=== PATIENT | male | born 1975 | race Caucasian/White ===

== ENCOUNTER 2017-04-10 14:54 | Emergency (ER) | payer OTHER ==
[~2017-04-10] VITALS: Ht 165.1 cm; Wt 81.7 kg
[~2017-04-10 14:54] MED LIST: OMEP40CA6 PO
[2017-04-10 14:58] VITALS: Ht 165.1 cm; Wt 81.7 kg
--- NOTE | 2017-04-10 16:01 | ERD ---
ER Documentation Chief Complaint Chief Complaint ALLERGIC REACTION TO MEDICATION HPI 42 y/o male patient with no significant medical, presents to the emergency department c/o sudden onset of generalized, erythematous rash after taking a niacin capsule one hour ago. Denies cough, shortness of breath, no lip swelling , no fever, chills, N/V/D. No history of previous episodes. Treatment attempted : None. Previous evaluation: None. ROS All systems reviewed and are negative except as per history of present illness. Medications Home Meds Active Scripts Diphenhydramine Hcl* (Benadryl*) 50 Mg Cap, 50 MG PO Q6H Y for ITCHING/RASH, # 30 CAP Prov:REBEKAH OLIVARES MD 04/10/17 Reported Medications Omeprazole* (Omeprazole*) 40 Mg Capsule.dr, 40 MG PO DAILY, CAP 09/10/14 Allergies Allergies: Coded Allergies: No Known Allergy (Unverified , 05/01/13) PMhx/Soc History of Surgery: No Anesthesia Reaction: No Hx Neurological Disorder: No Hx Respiratory Disorders: No Hx Cardiac Disorders: No Hx Psychiatric Problems: No Hx Miscellaneous Medical Probl: No Hx Alcohol Use: No Hx Substance Use: No Hx Tobacco Use: No Physical Exam Vitals Vital Signs Date Time Temp Pulse Resp B/P Pulse Ox O2 Delivery O2 Flow Rate FiO2 04/10/17 14:58 97.7 72 19 122/70 100 Physical Exam Patient is in no acute distress, vital signs stable. Alert and fully oriented. EYES: PERRLA, EOMI, Sclera and conjunctiva appear normal. EARS: Canals clear, tympanic membranes WNL THROAT: Normal oropharynx. NECK: Supple, No lymphadenopathy. Full ROM without pain or tenderness. HEART: RRR, no rubs, murmurs, clicks or gallops. LUNGS: Clear to auscultation. ABDOMEN: Soft, non-tender without masses or hepatosplenomegaly. EXTREMITIES: No edema bilaterally. BACK: Full ROM, no deformity, normal back exam NEURO: Cranial nerves grossly intact, no motor or sensory deficit Skin: Generalized erythematous maculopapular rash predominantly in upper arms Results 24 hrs Current Medications Medications (Trade) Dose Ordered Sig/Rajinder Route PRN Reason Start Time Stop Time Status Last Admin Dose Admin Diphenhydramine HCl (Benadryl) 50 mg ONCE ONCE PO 04/10/17 16:30 04/10/17 16:31 04/10/17 16:12 Procedures/MDM 42y/o male patient previously healthy, presents to the ED c/o generalized erythematous rash for 1 hour. Vital signs stable, Physical exam showed generalized maculopapular erythematous rash. Differential diagnosis include but not limited to: Contact dermatitis, urticaria, allergic reaction, no suspicion for infectious rash. Physical examination and clinical presentation consistent most likely with Niacin flushing reaction. During the ED course the patient received treatment with benadryl presenting overall improvement of the symptoms. Clinical impression discussed with patient who agrees with management. The patient is stable to be treated outpatient and will be discharged home with a Rx for benadry The patient was instructed to follow up with the primary care provider in the next 48h. If symptoms persist, worsen or new symptoms develop, then patient should return to the ED immediately. Instructions explained and given to patient in [Honduran] with acknowledgment and demonstrated understanding. Disclaimer: Inadvertent spelling and grammatical errors are likely due to EHR/ dictation software use and do not reflect on the overall quality of patient care. Also, please note that the electronic time recorded on this note does not necessarily reflect the actual time of the patient encounter. Departure Diagnosis: Primary Impression: Adverse reaction to niacin Condition: Stable Additional Instructions: Thank you very much for allowing us to participate in your care. Your health and safety is our top priority at [facility]. Have prescriptions filled and follow precisely the directions on the label. Follow-up with primary care provider during the next 4 days and bring all the information and medications prescribed. If illness has not improved in 2 days, then make an appointment with primary care provider. If the provider is unavailable, return to the Emergency Department immediately. REBEKAH OLIVARES MD Apr 10, 2017 16:01
[2017-04-10] MEDS ORDERED: BEN50 PO (16:24)
[2017-04-10] MEDS ORDERED: DIPHENHYDRAMINE 50 MG CAP PO ONE (16:30)
== END 2017-04-10 16:56 | disposition home or self-care (01) ==
LOC: FTE 14:54
DX: R21 Rash and other nonspecific skin eruption (principal); T46.7X5A Adverse effect of peripheral vasodilators, initial encounter
CPT/HCPCS: 99283

== ENCOUNTER 2017-07-10 15:06 | Emergency (ER) | END 2017-07-10 20:46 | disposition home or self-care (01) ==

== ENCOUNTER 2018-11-28 18:29 | Emergency (ER) | payer MEDICAID, OTHER ==
[~2018-11-28] VITALS: Ht 165.1 cm; Wt 77.3 kg
[~2018-11-28 18:29] MED LIST changes: +ACET500C5 PO; +BEN50 PO
[2018-11-28 18:31] VITALS: Ht 165.1 cm; Wt 77.3 kg
--- NOTE | 2018-11-28 22:27 | ERD ---
ER Documentation Chief Complaint Chief Complaint AP X'S 4 DAYS HPI The patient is a 43-year-old male, presenting with acute on chronic epigastric abdominal pain, worse for the last 4 days, worse after eating, especially spicy food and when he was hungry. He denies fever, chills, neck pain, chest pain, dyspnea, complains of constipation, denies dysuria. He does not smoke nor drink Past medical history: Hypertension, GERD, gastritis, anxiety Surgical history: He had EGD in [address] Lopez that show GERD and gastritis ROS All systems reviewed and are negative except as per history of present illness. Medications Home Meds Active Scripts Calcium Carbonate/Simethicone (Maalox Advanced Tab Chew) 1 Each Tab.chew, 1 EACH PO QID, #20 TAB.CHEW Prov:JANY CHRISTINA MD 11/28/18 Pantoprazole* (Protonix*) 40 Mg Tablet., 40 MG PO DAILY, #20 TAB Prov:JANY CHRISTINA MD 11/28/18 Acetaminophen* (Tylophen*) 500 Mg Capsule, 1 CAP PO Q6H PRN for PAIN AND OR ELEVATED TEMP, #30 CAP Prov:SCOTTIE GARCES PA-C 07/10/17 Diphenhydramine Hcl* (Benadryl*) 50 Mg Cap, 50 MG PO Q6H PRN for ITCHING/RASH, #30 CAP Prov:REBEKAH OLIVARES MD 04/10/17 Reported Medications Omeprazole* (Omeprazole*) 40 Mg Capsule.dr, 40 MG PO DAILY, CAP 09/10/14 Allergies Allergies: Coded Allergies: No Known Allergy (Unverified , 05/01/13) PMhx/Soc History of Surgery: No Anesthesia Reaction: No Hx Neurological Disorder: No Hx Respiratory Disorders: No Hx Cardiac Disorders: Yes (htn) Hx Psychiatric Problems: No Hx Miscellaneous Medical Probl: No Hx Alcohol Use: No Hx Substance Use: No Hx Tobacco Use: No Physical Exam Vitals Vital Signs Date Temp Pulse Resp B/P (MAP) Pulse Ox O2 O2 Flow FiO2 Time Delivery Rate 11/29/18 72 16 116/74 99 Room Air 00:12 (88) 11/28/18 97.6 71 18 133/85 99 18:31 (101) Physical Exam Const: No acute distress. Head: Atraumatic. Eyes: Normal Conjunctiva. ENT: Normal External Ears, Nose and Mouth. Neck: Full range of motion. No meningismus. Resp: Clear to auscultation bilaterally. Cardio: Regular rate and rhythm. Abd: Soft, non distended, normal bowel sounds, non tender. Skin: No petechiae or rashes. Back: No midline or flank tenderness. Ext: No cyanosis, or edema. Neur: Awake and alert. No focal deficit Psych: Normal Mood and Affect. Results 24 hrs Laboratory Tests Test 11/28/18 22:44 Bedside Urine pH (LAB) 7.0 Bedside Urine Protein (LAB) Negative Bedside Urine Glucose (UA) Negative Bedside Urine Ketones (LAB) Negative Bedside Urine Blood Negative Bedside Urine Nitrite (LAB) Negative Bedside Urine Leukocyte Esterase (L Negative Current Medications Medications Dose Sig/Rajinder Start Time Status Last (Trade) Ordered Route PRN Stop Time Admin Dose Reason Admin 40 ml ONCE ONCE 11/28/18 DC 11/28/18 Miscellaneous PO 23:00 11/28/18 22:53 Medication 23:01 (Gi Cocktail (2)) Procedures/MDM MEDICAL MAKING DECISION: The patient is a 43-year-old male, presenting with acute on chronic abdominal pain, most likely due to GERD and gastritis, was treated with GI cocktail with good response, is stable for outpatient follow-up The differential diagnoses considered include but are not limited to cholelithiasis, cholecystitis, choledocholithiasis, cholangitis, pancreatitis, hepatitis, gastritis, peptic ulcer disease, gastric ulcer, appendicitis, cystitis, diverticulitis, partial small bowel obstruction. Departure Diagnosis: Primary Impression: Abdominal pain Condition: Good Comments The patient's blood pressure was elevated (>120/80) but appears stable without evidence of hypertension emergency or urgency. The patient was counseled about the risks of hypertension and urged to pursue outpatient monitoring and therapy within a week with their primary care physician. He was discharged with Protonix and Maalox I discussed the findings with the patient. I advised the patient to follow-up with the primary physician in about 1-2 days for reevaluation and referral to gastroenterology for further evaluation, sooner if needed and return if any concern. Disclaimer: Inadvertent spelling and grammatical errors are likely due to EHR/dictation software use and do not reflect on the overall quality of patient care. Also, please note that the electronic time recorded on this note does not necessarily reflect the actual time of the patient encounter. JANY CHRISTINA MD Nov 28, 2018 22:27
[2018-11-28] MEDS ORDERED: LIDOCAINE/MYLANTA 40 ML BTL PO ONE (23:00)
[2018-11-28] MEDS ORDERED: CALC1TAB26 PO (23:34)
[2018-11-28] MEDS ORDERED: PANT40TA3 PO (23:34)
[2018-11-29 00:12] VITALS: BP 116/74; PULSE 72; RESP 16
== END 2018-11-29 00:13 | disposition home or self-care (01) ==
LOC: E/R 18:29
DX: R10.13 Epigastric pain (principal); I10 Essential (primary) hypertension
CPT/HCPCS: 81003; Z7502; Z7610; 99283